=== PATIENT | male | born 1960 | race Caucasian/White ===

== ENCOUNTER 2017-07-15 23:03 | Emergency (ER) | payer OTHER ==
[~2017-07-15] VITALS: Ht 193 cm; Wt 107.0 kg
[2017-07-16 00:54] VITALS: BP 152/94
== END 2017-07-16 00:54 | disposition home or self-care (01) ==
LOC: ED 23:03
DX: J40 Bronchitis, not specified as acute or chronic (principal); J06.9 Acute upper respiratory infection, unspecified; Z88.8 Allergy status to other drugs, medicaments and biological substances
CPT/HCPCS: J1885; Q0092